=== PATIENT | male | born 1950 | race Hispanic/Latino ===

== ENCOUNTER 2019-05-11 05:30 | Day surgery (SDC) | payer OTHER ==
[2019-05-07 13:16] VITALS: BP 128/70
[2019-05-11] VITALS (11 sets, daily range): BP systolic 106–122; BP diastolic 63–75
[~2019-05-11] VITALS: Ht 170.2 cm; Wt 90.0 kg
[~2019-05-11 05:30] MED LIST: DOXA2TAB2 PO; FINA5TAB41 PO; GABA-529 PO
[2019-05-11] MEDS ORDERED: LACTATED RINGERS 1000ML 1,000 ML IV ONE (06:43)
[2019-05-11] MEDS ORDERED: MIDAZOLAM HCL 1 MG/ML 2ML VIAL ONE (07:01)
[2019-05-11] MEDS ORDERED: FENTANYL CITRATE PF 50 MCG/1 ML 2ML VIAL ONE (07:01)
[2019-05-11] MEDS ORDERED: LIDOCAINE HCL-MPF 0.5% 50ML VIAL IJ ONE (07:04)
[2019-05-11] MEDS: CEFAZOLIN SODIUM 1 GM VIAL ONE ×2 (07:18→08:00)
[2019-05-11] MEDS ORDERED: CEFAZOLIN SODIUM 1 GM VIAL IVP ONE (08:00)
[2019-05-11] MEDS ORDERED: GLYCOPYRROLATE 1 MG/5 ML SYRINGE ONE (08:12)
--- NOTE | 2019-05-11 09:48 | NUR ---
PT LEFT VIA WHEELCHAIR IN PVT CAR WITH SPOUSE. D/C INSTRUCTION GIVEN TO SPOUSE ALONG WITH RX SCRIPT.
== END 2019-05-11 09:50 | disposition home or self-care (01) ==
LOC: DAH 05:30
PROVIDERS: ATTEND Neurological Surgery
DX: G56.02 Carpal tunnel syndrome, left upper limb (principal); J45.909 Unspecified asthma, uncomplicated; Z98.890 Other specified postprocedural states; Z79.899 Other long term (current) drug therapy
CPT/HCPCS: 64721; A4215 ×3; A4216; A4221; A4222; A4223; A4663; A6260; J0690; J2250; J3010; J3490 ×2; J7120